=== PATIENT | female | born 1980 | race Caucasian/White ===

== ENCOUNTER 2017-05-24 14:18 | Emergency (ER) | payer MEDICAID ==
[~2017-05-24] VITALS: Ht 157.5 cm; Wt 54.5 kg
[~2017-05-24 14:18] MED LIST: CIPR500T4 PO; IBUP-1542 PO; PHEN-538 PO; PREN1TAB49; TRAM50TA2 PO
[2017-05-24 14:20] VITALS: Ht 157.5 cm; Wt 54.5 kg
[2017-05-24] MEDS ORDERED: KETOROLAC 30 MG INJ IM STA (14:39)
[2017-05-24] MEDS ORDERED: ONDANSETRON (ODT) 4 MG TAB ODT STA (14:39)
--- NOTE | 2017-05-24 14:48 | ERD ---
ER Documentation Chief Complaint Chief Complaint Complains of lower back pain since this am HPI This is a very pleasant 36-year-old female [place]-speaking. An wash and greaser was used. The patient states that she has had a couple weeks if not longer of lumbar back pain that is paraspinal. However over the past 12 hours she is having worsening pain. Patient states that she was bending over while doing some housework and felt excruciating pain to the lumbar back. She now describes bilateral paraspinal lumbar back pain left greater than right that is 8 out of 10 throbbing and worse with movement. She denies any migratory pain to the abdomen, no nausea vomiting or diarrhea. She denies any risk of dysuria urgency or frequency or hematuria. She denies any numbness or tingling or motor weakness. No bowel or bladder incontinence and/or retention. Took Tylenol with only mild improvement. ROS All systems reviewed and are negative except as per history of present illness. Medications Home Meds Active Scripts Hydrocodone/Acetaminophen ([place] 10-325 Tablet) 1 Each Tablet, 1 TAB PO Q6H for BREAKTHROUGH PAIN, #7 TAB Prov:ALICIA RIVERA MD 05/24/17 Ondansetron (Ondansetron Odt) 4 Mg Tab.rapdis, 4 MG PO Q6H Y for NAUSEA AND/OR VOMITING, #30 TAB Prov:ALICIA RIVERA MD 05/24/17 Diazepam* (Valium*) 5 Mg Tablet, 5 MG PO Q8 Y for MUSCLE SPASMS, #12 TAB Prov:AILCIA RIVERA MD 05/24/17 Ibuprofen* (Motrin*) 800 Mg Tab, 800 MG PO Q6H Y for PAIN AND OR ELEVATED TEMP, #30 TAB Prov:ALICIA RIVERA MD 05/24/17 Tramadol HCl (Tramadol HCl) 50 Mg Tab, 50 MG PO Q4 Y for PAIN, #15 TAB Prov:MARELY HE MD 05/16/15 Ibuprofen* (Motrin*) 600 Mg Tab, 600 MG PO Q6, #14 TAB Prov:MARELY HE MD 05/16/15 Phenazopyridine Hcl* (Pyridium*) 200 Mg Tab, 200 MG PO TID for 2 Days, TAB Prov:MARELY MORTON PA-C 05/15/15 Ciprofloxacin Hcl* (Ciprofloxacin Hcl*) 500 Mg Tablet, 500 MG PO BID for 7 Days , TAB Prov:PRAVEENMARELY PA-C 05/15/15 Reported Medications Vits W-Ca,Fe,Fa(<1MG) () 1 Tab Tablet 09/13/10 Allergies Allergies: Coded Allergies: No Known Allergy (Verified , 05/15/15) PMhx/Soc History of Surgery: Yes (c section) Anesthesia Reaction: No Hx Neurological Disorder: No Hx Respiratory Disorders: No Hx Cardiac Disorders: Yes (tachycardia) Hx Psychiatric Problems: No Hx Miscellaneous Medical Probl: Yes (thyroid problems) Hx Alcohol Use: No Hx Substance Use: No Hx Tobacco Use: No FmHx Family History: No diabetes Physical Exam Vitals Vital Signs Date Time Temp Pulse Resp B/P Pulse Ox O2 Delivery O2 Flow Rate FiO2 05/24/17 14:20 97.6 72 20 114/71 98 Physical Exam General: Uncomfortable with movement Head: Normocephalic, atraumatic. Eyes: Pupils equally reactive, EOM intact ENT: Moist mucous membranes Neck: Supple, no lymphadenopathy Respiratory: Lungs clear bilaterally, no distress Cardiovascular: RRR, no murmurs, rubs, or gallops Abdominal: Soft, non-tender, non-distended, no peritoneal signs : Deferred MSK: The patient has no midline tenderness deformities or step-offs to the thoracolumbar spine. She has very reproducible soft tissue tenderness to the paraspinal lumbar muscles left greater than right. Intact reflexes to bilateral lower extremities. No CVA tenderness Neurologic: Alert and oriented, moving all extremities, normal speech, no focal weakness, no cerebellar signs Skin: No rash Psych: Normal mood Results 24 hrs Current Medications Medications (Trade) Dose Ordered Sig/Jeb Route PRN Reason Start Time Stop Time Status Last Admin Dose Admin Ketorolac Tromethamine (Toradol) 30 mg ONCE STAT IM 05/24/17 14:39 05/24/17 14:40 DC 05/24/17 14:46 Acetaminophen/ Hydrocodone Bitart ([place] (10/325)) 1 tab ONCE ONCE PO 05/24/17 15:00 05/24/17 15:01 DC 05/24/17 14:46 Ondansetron HCl (Zofran Odt) 4 mg ONCE STAT ODT 05/24/17 14:39 05/24/17 14:40 DC 05/24/17 14:46 Diazepam (Valium) 5 mg ONCE ONCE PO 05/24/17 15:00 05/24/17 15:01 DC 05/24/17 14:46 Hydromorphone HCl (Dilaudid) 1 mg ONCE STAT IM 05/24/17 15:35 05/24/17 15:36 DC 05/24/17 15:38 Procedures/MDM MEDICAL DECISION MAKING: The patient's back pain is most likely musculoskeletal. She is clear trigger and clear reproducible symptoms on exam. The patient's low back pain is unlikely related to serious etiology. The patient exhibits no clinical signs or symptoms and has no history or risk factors to suggest cauda equina, cord compression, epidural abscess, epidural hematoma, acute aortic aneurysm or dissection. The patient does not exhibit any signs or symptoms concerning for acute intra- abdominal process and I do not believe that the patient would benefit from laboratory testing or CT imaging other than hCG. No signs or symptoms concerning for ovarian process. ER COURSE: Given the reproducible symptoms she was treated with Toradol, [place], Valium, Motrin. She was reevaluated with improvement of symptoms but not 0 out of 10 pain. I do not expect her to have 0-10 pain at this time. This is most likely consistent with lumbar spasm. Expectant management on an outpatient basis with warm compresses, range of motion exercises and pain medication as appropriate would be reasonable. No indication for x-ray imaging given low concern for fracture malignancy. Outpatient MRI imaging if symptoms continue or persist through primary care physician. The patient still had some mild discomfort. The patient was given a dose of IM Dilaudid with now dramatic improvement and almost complete resolution of pain. I kept the patient and/or family informed of laboratory and diagnostic imaging results throughout the emergency room course. DISPOSITION PLAN: We discussed follow up with the patient's primary care doctor within 24 to 48 hours as needed. We also discussed return to the emergency room for worsening symptoms or worsening condition. Outpatient referral: [None required] Discharge Medications: [place], Motrin, Valium and Zofran We discussed the use of narcotics including avoidance of operating heavy machinery and driving as well as its addictive properties. Departure Diagnosis: Primary Impression: Lumbar paraspinal muscle spasm Condition: Stable ALICIA RIVERA MD May 24, 2017 14:48
[2017-05-24] MEDS ORDERED: IBUP800T25 PO (14:54)
[2017-05-24] MEDS ORDERED: DIAZ-90 PO (14:54)
[2017-05-24] MEDS ORDERED: HYDR-902 PO (14:54)
[2017-05-24] MEDS ORDERED: ONDA4TAB14 PO (14:54)
[2017-05-24] MEDS ORDERED: HYDROCODONE/APAP (10/325) TAB PO ONE (15:00)
[2017-05-24] MEDS ORDERED: DIAZEPAM 5 MG TAB PO ONE (15:00)
[2017-05-24] MEDS ORDERED: HYDROmorphONE 1 MG/ML SYG IM STA (15:35)
[2017-05-24 16:07] VITALS: BP 110/68; PULSE 84; RESP 20; TEMP 98
== END 2017-05-24 16:08 | disposition home or self-care (01) ==
LOC: FTE 14:18
DX: M62.830 Muscle spasm of back (principal)
CPT/HCPCS: 96372; J1170; J1885; Z7502; Z7610

== ENCOUNTER 2017-05-24 20:45 | Emergency (ER) | payer MEDICAID ==
[~2017-05-24] VITALS: Ht 157.5 cm; Wt 54.5 kg
[~2017-05-24 20:45] MED LIST changes: +DIAZ-90 PO; +HYDR-902 PO; +IBUP800T25 PO; +ONDA4TAB14 PO
[2017-05-24 20:55] VITALS: Ht 157.5 cm; Wt 54.5 kg
--- NOTE | 2017-05-24 21:20 | ERD ---
ER Documentation Chief Complaint Chief Complaint PT IN C/O "ALLERGIC REACTION TO MEDS". PT VOMITED POST EATING HPI 36-year-old female presented with severe low back pain earlier today, was treated with multiple pain medications and returns to emergency room with nausea , vomiting and generalized weakness. The pain medication she received included [place], Toradol, Valium as well as Dilaudid. She normally does not take pain medication that is narcotic basis. She denies chest pain, shortness of breath. She had gotten ready to eat dinner and had a piece of chicken and had vomited the food. Patient denies chest pain, abdominal pain. Patient denies saddle anesthesia loss of bowel bladder function. ROS All systems reviewed and are negative except as per history of present illness. Medications Home Meds Active Scripts Hydrocodone/Acetaminophen ([place] 10-325 Tablet) 1 Each Tablet, 1 TAB PO Q6H for BREAKTHROUGH PAIN, #7 TAB Prov:ALICIA RIVERA MD 05/24/17 Ondansetron (Ondansetron Odt) 4 Mg Tab.rapdis, 4 MG PO Q6H Y for NAUSEA AND/OR VOMITING, #30 TAB Prov:ALICIA RIVERA MD 05/24/17 Diazepam* (Valium*) 5 Mg Tablet, 5 MG PO Q8 Y for MUSCLE SPASMS, #12 TAB Prov:ALICIA RIVERA MD 05/24/17 Ibuprofen* (Motrin*) 800 Mg Tab, 800 MG PO Q6H Y for PAIN AND OR ELEVATED TEMP, #30 TAB Prov:ALICAI RIVERA MD 05/24/17 Tramadol HCl (Tramadol HCl) 50 Mg Tab, 50 MG PO Q4 Y for PAIN, #15 TAB Prov:MARELY HE MD 05/16/15 Ibuprofen* (Motrin*) 600 Mg Tab, 600 MG PO Q6, #14 TAB Prov:MARELY HE MD 05/16/15 Phenazopyridine Hcl* (Pyridium*) 200 Mg Tab, 200 MG PO TID for 2 Days, TAB Prov:MARELY MORTON PA-C 05/15/15 Ciprofloxacin Hcl* (Ciprofloxacin Hcl*) 500 Mg Tablet, 500 MG PO BID for 7 Days , TAB Prov:MARELY MORTON PA-C 05/15/15 Reported Medications Vits W-Ca,Fe,Fa(<1MG) () 1 Tab Tablet 09/13/10 Allergies Allergies: Coded Allergies: No Known Allergy (Verified , 05/24/17) PMhx/Soc History of Surgery: Yes (c section) Anesthesia Reaction: No Hx Neurological Disorder: No Hx Respiratory Disorders: No Hx Cardiac Disorders: Yes (tachycardia) Hx Psychiatric Problems: No Hx Miscellaneous Medical Probl: Yes (thyroid problems) Hx Alcohol Use: No Hx Substance Use: No Hx Tobacco Use: No Physical Exam Vitals Vital Signs Date Time Temp Pulse Resp B/P Pulse Ox O2 Delivery O2 Flow Rate FiO2 05/24/17 20:55 98.1 99 20 121/65 100 Physical Exam General: She is anxious appearing, no respiratory distress. HEENT: Head is normocephalic, atraumatic. No scleral icterus. Eyes are Stormy, extraocular movements intact. Neck: Supple. Nontender. Lungs: Clear to auscultation. Normal air movement. Heart: Regular rate and rhythm. S1 and S2 are normal. No murmurs, gallops, or rubs. Abdomen: Soft, nontender, nondistended. Bowel sounds are normoactive. Extremities: No clubbing or cyanosis. Normal pulses. Moving extremities x 4. No weakness. Neurologic: Alert and oriented 3. No focal deficits. Skin: Normal turgor. No rash or lesions. Results 24 hrs Current Medications Medications (Trade) Dose Ordered Sig/Jeb Route PRN Reason Start Time Stop Time Status Last Admin Dose Admin Sodium Chloride (NS) 1,000 ml @ 1,000 mls/hr Q1H ONCE IV 05/24/17 21:30 05/24/17 22:29 DC 05/24/17 21:40 Procedures/MDM ED course: Patient's EMR was reviewed, the patient received multiple pain medications and is most likely having adverse side effects. There are no signs of anaphylaxis or an allergic reaction. Her blood pressure is stable however given her symptoms of dizziness she will be treated with intravenous fluids and will be monitored in the emergency room. I reevaluated the patient, she states she is feeling much better at this time. Only complaint is somnolence as expected. She will be discharged home, advised to take ibuprofen, and Zofran as prescribed. Departure Diagnosis: Primary Impression: Drug side effects Condition: CAROLYNN Booth PA-C May 24, 2017 21:20
[2017-05-24] MEDS ORDERED: SOD CHLORIDE 0.9% 1,000 ML IV ONE (21:30)
== END 2017-05-24 23:18 | disposition home or self-care (01) ==
LOC: FTE 20:45
DX: R11.10 Vomiting, unspecified (principal)
CPT/HCPCS: J7030; Z7502